=== PATIENT | female | born 1990 | race Caucasian/White ===

== ENCOUNTER 2018-04-02 21:51 | Inpatient (IN) | payer OTHER ==
[2018-04-03] MEDS ORDERED: ePHEDrine 50 MG/ML SDV IVPUSH PRN (04:22)
[2018-04-03] MEDS ORDERED: diphenhydrAMINE 50 MG/ML SDV IVPUSH PRN (04:22)
[2018-04-03] MEDS ORDERED: fentaNYL 100 MCG/2 ML SDV EPIDUR PRN (04:22)
[2018-04-03] MEDS ORDERED: Bupivacaine/fentaNYL/NS 100 ML Bag EPIDUR SCH (04:30)
[2018-04-03] MEDS ORDERED: Sodium Chloride 0.9% 10 ML Syringe FLUSH PRN (04:31)
[2018-04-03] MEDS ORDERED: Oxytocin/Lactated Ringers 10 UNIT/1,000 ML BAG IV SCH ×2 (04:45)
[2018-04-03] MEDS: Lactated Ringers 1,000 ML IV SCH ×3 (05:16→09:51)
--- NOTE | 2018-04-03 05:32 | PCM.LDHP ---
L&D History of Present Illness - General Date of Service: 04/02/18 Admit Problem/Dx: Patient Status Order with Admit Dx/Problem 04/03/18 04:31 Patient Status [ADT] Routine Admission Diagnosis/Problem Admission Diagnosis/Problem Source of Information: Patient History Limitations: Reports: No Limitations - History of Present Illness Introduction:: Patient is a 27 y/o G7 P 4205 woman at 38 1/7 wks who initially presented for concerns for contractions / labor. Contractions have been every 3-8 minutes. No bleeding or LOF with these contractions. Notes good FM. 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: : 7 Para: 6 (5 living children) LMP (Approximate): - Past Surgical History Female Surgical History: Reports: Lithotripsy/ESWL Social & Family History - Tobacco Use Smoking Status *Q: Former Smoker - Alcohol Use Alcohol Use History: No - Recreational Drug Use Recreational Drug Use: Yes Recreational Drug Type: Reports: Cocaine, Methamphetamine, Oxycodone H&P Review of Systems - Review of Systems: Review Of Systems: See Below General: Reports: No Symptoms Pulmonary: Reports: No Symptoms Cardiovascular: Reports: No Symptoms Gastrointestinal: Reports: No Symptoms Genitourinary: Reports: No Symptoms Musculoskeletal: Reports: No Symptoms Neurological: Reports: No Symptoms L&D Exam - Exam Exam: See Below - Vital Signs Weight: 68.492 kg - OB Specific Contraction Intensity: Mild Movement: Active Heart Tones: Present Heart Tones per Min: 120 Heart Rate (FHR) Variability: Moderate (6-25 bmp) Presentation: Vertex - Naik Score Naik Score Cervix Position: Posterior Naik Score Consistency: Medium Naik Score Effacement: 31-50% Naik Score Dilation: 3-4 cm Naik Score Infant's Station: -3 Naik Score Total: 4 - Exam General: Alert, Oriented, Cooperative Lungs: Clear to Auscultation, Normal Respiratory Effort Cardiovascular: Regular Rate, Regular Rhythm GI/Abdominal Exam: Soft, Non-Tender Genitourinary: Normal external exam Extremities: Normal Inspection Skin: Warm, Dry, Intact - Patient Data Lab Results Last 24 hrs: Laboratory Results - last 24 hr 04/03/18 04/03/18 Range/Units 03:30 03:30 WBC 8.60 (3.98-10.04) K/mm3 RBC 3.26 L (3.98-5.22) M/mm3 Hgb 10.2 L (11.2-15.7) gm/L Hct 30.3 L (34.1-44.9) % MCV 92.9 (79.4-94.8) fl MCH 31.3 (25.6-32.2) pg MCHC 33.7 (32.2-35.5) g/dl RDW Std Deviation 46.8 H (36.4-46.3) fL Plt Count 268 (182-369) K/mm3 MPV 10.1 (9.4-12.3) fl Neut % (Auto) 58.4 (34.0-71.1) % Lymph % (Auto) 31.2 (19.3-51.7) % [place] % (Auto) 7.1 (4.7-12.5) % Eos % (Auto) 1.4 (0.7-5.8) Baso % (Auto) 0.2 (0.1-1.2) % Neut # (Auto) 5.02 (1.56-6.13) K/mm3 Lymph # (Auto) 2.68 (1.18-3.74) K/mm3 [place] # (Auto) 0.61 H (0.24-0.36) K/mm3 Eos # (Auto) 0.12 (0.04-0.36) K/mm3 Baso # (Auto) 0.02 (0.01-0.08) K/mm3 Manual Slide Review Normal smear Creatinine 0.8 (0.55-1.02) mg/dL Est Cr Clr Drug Dosing 92.83 mL/min Estimated GFR (MDRD) > 60 (>60) mL/min AST 18 (15-37) U/L ALT 17 (14-59) U/L Result Diagrams: 04/03/18 03:30 04/03/18 03:30 - Problem List (1) 38 weeks gestation of SNOMED Code(s): 26438311 ICD Code: Z3A.38 - 38 WEEKS GESTATION OF Status: Acute Current Visit: Yes (2) Gestational hypertension SNOMED Code(s): 72724255 ICD Code: O13.9 - GESTATIONAL HTN W/O SIGNIFICANT PROTEINURIA, UNSP TRIMESTER Status: Acute Current Visit: Yes Qualifiers: Trimester: third trimester Qualified Code(s): O13.3 - Gestational [ -induced] hypertension without significant proteinuria, third trimester Problem List Initiated/Reviewed/Updated: Yes Orders Last 24hrs: Active Orders 24 hr Category Date Time Status Patient Status [ADT] Routine ADT 04/03/18 04:31 Active Activity as Tolerated [RC] PFP Care 04/03/18 04:31 Active Communication Order [RC] ASDIRECTED Care 04/03/18 04:21 Active Communication Order [RC] ASDIRECTED Care 04/03/18 04:31 Active Cooling Warming Measures [RC] ASDIRECTED Care 04/03/18 04:21 Active Heart Tones [RC] ASDIRECTED Care 04/03/18 04:32 Active Non Stress Test [RC] PER UNIT ROUTINE Care 04/03/18 04:31 Active Notify Provider [RC] ASDIRECTED Care 04/03/18 04:21 Active Notify Provider [RC] PFP Care 04/03/18 04:31 Active Notify Provider [RC] PRN Care 04/03/18 04:31 Active Oxygen Therapy [RC] ASDIRECTED Care 04/03/18 04:21 Active Peripheral IV Care [RC] . DIRECTED Care 04/03/18 04:32 Active Pulse Oximetry [RC] ASDIRECTED Care 04/03/18 04:21 Active Verify Patient Consent Obtain [RC] ASDIRECTED Care 04/03/18 04:21 Active Vital Signs [RC] PER UNIT ROUTINE Care 04/03/18 04:31 Active RAPID PLASMA REAGIN,RPR [CHEM] Routine Lab 04/03/18 03:30 Received Bupivacaine/fentaNYL/NS [fentaNYL/Bupivacaine/NS 2 MCG- Med 04/03/18 04:30 Active 0.125% 100 ML] 100 ml EPIDUR ASDIRECTED Lactated Ringers [Ringers, Lactated] 1,000 ml Med 04/03/18 04:45 Active IV ASDIRECTED Oxytocin/Lactated Ringers [Pitocin in LR 10 Units/1,000 Med 04/03/18 04:45 Active ML] 10 unit in 1,000 ml IV ASDIRECTED Oxytocin/Lactated Ringers [Pitocin in LR 10 Units/1,000 Med 04/03/18 04:45 Active ML] 10 unit in 1,000 ml IV TITRATE Sodium Chloride 0.9% [Saline Flush] Med 04/03/18 04:31 Active 10 ml FLUSH ASDIRECTED PRN diphenhydrAMINE [Benadryl] Med 04/03/18 04:22 Active 25 mg IVPUSH Q6H PRN ePHEDrine [ePHEDrine Sulfate] Med 04/03/18 04:22 Active 5 mg IVPUSH ASDIRECTED PRN fentaNYL [Sublimaze] Med 04/03/18 04:22 Active 100 mcg EPIDUR Q3H PRN Electronic Heart Tones Ext w TOCO [WOMSER] Oth 04/03/18 04:31 Ordered Routine Electronic Heart Tones Internal [WOMSER] Per Unit Ot 04/03/18 04:31 Ordered Routine Peripheral IV Insertion Adult [OM.PC] Routine Ot 04/03/18 04:31 Ordered Pulse Oximetry Continuous Monitoring [OM.PC] Routine Ot 04/03/18 04:21 Active Resuscitation Status Routine Resus Stat 04/03/18 04:31 Ordered Medication Orders Diphenhydramine HCl (Benadryl) 25 mg IVPUSH Q6H PRN PRN Reason: Itching Ephedrine Sulfate (Ephedrine Sulfate) 5 mg IVPUSH ASDIRECTED PRN PRN Reason: HYPOTENTSION Fentanyl (Sublimaze) 100 mcg EPIDUR Q3H PRN PRN Reason: Pain Fentanyl/Bupivacaine HCl (Fentanyl/Bupivacaine/Ns 2 Mcg-0.125% 100 Ml) 100 ml EPIDUR ASDIRECTED BENJI Lactated Ringer's (Ringers, Lactated) 1,000 mls @ 100 mls/hr IV ASDIRECTED BENJI Last Admin: 04/03/18 05:16 Dose: 100 mls/hr Oxytocin/Lactated Ringer's (Pitocin In Lr 10 Units/1,000 Ml) 10 unit in 1,000 mls @ 500 mls/hr IV ASDIRECTED BENJI Oxytocin/Lactated Ringer's (Pitocin In Lr 10 Units/1,000 Ml) 10 unit in 1,000 mls @ 12 mls/hr IV TITRATE BENJI; Protocol Last Admin: 04/03/18 05:17 Dose: 2 munits/min, 12 mls/hr Sodium Chloride (Saline Flush) 10 ml FLUSH ASDIRECTED PRN PRN Reason: Keep Vein Open Assessment/Plan Comment:: 27 y/o woman presented at 38 1/7 wks who presented for concerns of labor /contractions. No SVE chnge over the evening, but with findings of mild range BP's. Reviewed need for IOL for gestational HTN. She agreed. * CBC, AST, ALT, Cr, T&S, RPR * GBS negative, no need for antibiotics * Pitocin and AROM for IOL * Pain management per patient preference * Anticipate
--- NOTE | 2018-04-03 09:02 | PCM.PREANE ---
Preanesthetic Assessment - Anesthesia/Transfusion/Family Hx Anesthesia History: Prior Anesthesia Without Reaction Family History of Anesthesia Reaction: No Transfusion History: Prior Transfusion Without Reaction - Review of Systems General: No Symptoms Pulmonary: No Symptoms Cardiovascular: No Symptoms Gastrointestinal: Abdominal Pain (labor contractions) Neurological: No Symptoms Other: Reports: None - Physical Assessment Pulse: 85 O2 Sat by Pulse Oximetry: 100 Respiratory Rate: 16 Blood Pressure: 136/80 Temperature: 36.3 C Height: 1.63 m Weight: 68.492 kg ASA Class: 2 Mental Status: Alert & Oriented x3 Airway Class: Mallampati = 1 Dentition: Reports: Normal Dentition Thyro-Mental Finger Breadths: 3 Mouth Opening Finger Breadths: 3 ROM/Head Extension: Full Lungs: Clear to Auscultation, Normal Respiratory Effort Cardiovascular: Regular Rate, Regular Rhythm - Lab Values: Laboratory Last Values WBC 8.60 K/mm3 (3.98-10.04) 04/03/18 03:30 RBC 3.26 M/mm3 (3.98-5.22) L 04/03/18 03:30 Hgb 10.2 gm/L (11.2-15.7) L 04/03/18 03:30 Hct 30.3 % (34.1-44.9) L 04/03/18 03:30 MCV 92.9 fl (79.4-94.8) 04/03/18 03:30 MCH 31.3 pg (25.6-32.2) 04/03/18 03:30 MCHC 33.7 g/dl (32.2-35.5) 04/03/18 03:30 RDW Std Deviation 46.8 fL (36.4-46.3) H 04/03/18 03:30 Plt Count 268 K/mm3 (182-369) 04/03/18 03:30 MPV 10.1 fl (9.4-12.3) 04/03/18 03:30 Neut % (Auto) 58.4 % (34.0-71.1) 04/03/18 03:30 Lymph % (Auto) 31.2 % (19.3-51.7) 04/03/18 03:30 [place] % (Auto) 7.1 % (4.7-12.5) 04/03/18 03:30 Eos % (Auto) 1.4 (0.7-5.8) 04/03/18 03:30 Baso % (Auto) 0.2 % (0.1-1.2) 04/03/18 03:30 Neut # (Auto) 5.02 K/mm3 (1.56-6.13) 04/03/18 03:30 Lymph # (Auto) 2.68 K/mm3 (1.18-3.74) 04/03/18 03:30 [place] # (Auto) 0.61 K/mm3 (0.24-0.36) H 04/03/18 03:30 Eos # (Auto) 0.12 K/mm3 (0.04-0.36) 04/03/18 03:30 Baso # (Auto) 0.02 K/mm3 (0.01-0.08) 04/03/18 03:30 Manual Slide Review Normal smear 04/03/18 03:30 Creatinine 0.8 mg/dL (0.55-1.02) 04/03/18 03:30 Est Cr Clr Drug Dosing 92.83 mL/min 04/03/18 03:30 Estimated GFR (MDRD) > 60 mL/min (>60) 04/03/18 03:30 AST 18 U/L (15-37) 04/03/18 03:30 ALT 17 U/L (14-59) 04/03/18 03:30 RPR Non-reactive (NONREACTIVE) 04/03/18 03:30 - Allergies Allergies/Adverse Reactions: Allergies Allergy/AdvReac Type Severity Reaction Status Date / Time amoxicillin Allergy Hives Verified 04/03/18 02:19 - Anesthesia Plan Pre-Op Medication Ordered: None - Acknowledgements Anesthesia Type Planned: Epidural Pt an Appropriate Candidate for the Planned Anesthesia: Yes Alternatives and Risks of Anesthesia Discussed w Pt/Guardian: Yes Pt/Guardian Understands and Agrees with Anesthesia Plan: Yes PreAnesthesia Questionnaire Cardiovascular History: Reports: Other (See Below) (Hx of preeclampsia in prior pregnacy) Respiratory History: Reports: None Gastrointestinal History: Reports: None Genitourinary History: Reports: Renal Calculus, UTI, Recurrent Other Genitourinary History: Hx of severe kidney infections, renal calculus, and numerous kidney-related surgeries throughout her life (see surgical hx). 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 Endocrine/Metabolic History: Reports: None Hematologic History: Reports: Anemia Immunologic History: Reports: None Oncologic (Cancer) History: Reports: None Dermatologic History: Reports: None - Past Surgical History Female Surgical History: Reports: Lithotripsy/ESWL - SUBSTANCE USE Smoking Status *Q: Former Smoker Tobacco Use Within Last Twelve Months: Cigarettes Second Hand Smoke Exposure: No Recreational Drug Use History: Yes Recreational Drug Type: Reports: Cocaine, Methamphetamine, Oxycodone - CURRENT (IN HOUSE) MEDS Current Meds: Current Medications Diphenhydramine HCl (Benadryl) 25 mg IVPUSH Q6H PRN PRN Reason: Itching Ephedrine Sulfate (Ephedrine Sulfate) 5 mg IVPUSH ASDIRECTED PRN PRN Reason: HYPOTENTSION Fentanyl (Sublimaze) 100 mcg EPIDUR Q3H PRN PRN Reason: Pain Last Admin: 04/03/18 09:00 Dose: 100 mcg Fentanyl/Bupivacaine HCl (Fentanyl/Bupivacaine/Ns 2 Mcg-0.125% 100 Ml) 100 ml EPIDUR ASDIRECTED BENJI Last Admin: 04/03/18 09:00 Dose: 100 ml Lactated Ringer's (Ringers, Lactated) 1,000 mls @ 100 mls/hr IV ASDIRECTED BENJI Last Admin: 04/03/18 07:52 Dose: 100 mls/hr Oxytocin/Lactated Ringer's (Pitocin In Lr 10 Units/1,000 Ml) 10 unit in 1,000 mls @ 500 mls/hr IV ASDIRECTED BENJI Oxytocin/Lactated Ringer's (Pitocin In Lr 10 Units/1,000 Ml) 10 unit in 1,000 mls @ 12 mls/hr IV TITRATE BENJI; Protocol Last Admin: 04/03/18 05:17 Dose: 2 munits/min, 12 mls/hr Sodium Chloride (Saline Flush) 10 ml FLUSH ASDIRECTED PRN PRN Reason: Keep Vein Open
--- NOTE | 2018-04-03 10:34 | PCM.PNLD ---
Labor Progress Note - VS & Meds Vital Signs: Last Vital Signs Temp 36.3 C 04/03/18 09:02 Pulse 85 04/03/18 09:02 Resp 16 04/03/18 09:02 BP 136/80 04/03/18 09:02 Pulse Ox 100 04/03/18 09:02 Active Medications: Current Medications Diphenhydramine HCl (Benadryl) 25 mg IVPUSH Q6H PRN PRN Reason: Itching Last Admin: 04/03/18 09:50 Dose: 25 mg Ephedrine Sulfate (Ephedrine Sulfate) 5 mg IVPUSH ASDIRECTED PRN PRN Reason: HYPOTENTSION Fentanyl (Sublimaze) 100 mcg EPIDUR Q3H PRN PRN Reason: Pain Last Admin: 04/03/18 09:00 Dose: 100 mcg Fentanyl/Bupivacaine HCl (Fentanyl/Bupivacaine/Ns 2 Mcg-0.125% 100 Ml) 100 ml EPIDUR ASDIRECTED BENJI Last Admin: 04/03/18 09:00 Dose: 100 ml Lactated Ringer's (Ringers, Lactated) 1,000 mls @ 100 mls/hr IV ASDIRECTED BENJI Last Admin: 04/03/18 09:51 Dose: 100 mls/hr Oxytocin/Lactated Ringer's (Pitocin In Lr 10 Units/1,000 Ml) 10 unit in 1,000 mls @ 500 mls/hr IV ASDIRECTED BENJI Oxytocin/Lactated Ringer's (Pitocin In Lr 10 Units/1,000 Ml) 10 unit in 1,000 mls @ 12 mls/hr IV TITRATE BENJI; Protocol Last Titration: 04/03/18 10:27 Dose: 6 munits/min, 36 mls/hr Sodium Chloride (Saline Flush) 10 ml FLUSH ASDIRECTED PRN PRN Reason: Keep Vein Open - Uterine Contractions Uterine Monitoring Mode: External [place] Contraction Intensity: Mild - Monitoring Monitor Mode: External Ultrasound Heart Rate (FHR) Baseline: 120 Heart Rate (FHR) Variability: Moderate (6-25 bmp) Accelerations: Present, 15x15 Decelerations: Variable Strip Review: Category II - Labor Progress (Free Text) Labor Progress: Patient doing well overall. AROM done at about 0600 this AM. Has been getting more uncomfortable. Received her epidural. Pitocin currently at 2. Continue present management
--- NOTE | 2018-04-03 12:23 | PCM.DEL ---
L & D Note - General Info Date of Service: 04/03/18 - Delivery Note Labor: Induced by ARM, Induced by Oxytocin Delivery Outcome: Livebirth Infant Delivery Method: Spontaneous Vaginal Delivery-Single Delivery Mode: Spontaneous Presentation: Right Occiput Anterior (GLORIA) Nuchal Cord: None Anesthesia Type: Epidural Amniotic Fluid Description: Clear Episiotomy Type: None Laceration: None Placenta: Intact, Spontaneous Cord: 3 Vessels Estimated Blood Loss: 200 Resuscitation Needed: Yes [place]: Bulb Syringe, Stimulated, Warmed, [place] Used, Warmer Used Score 1 min: 9 Score 5 min: 9 Delivery Comments (Free Text/Narrative):: Patient found to be complete and began pushing. With maternal pushing effort head delivered from an GLORIA presentation. No nuchal cord present. With gentle downward traction the shoulders and body delivered. Infant placed on maternal abdomen. Cord clamped and cut. Cord blood blood obtained. Placenta allowed time to separate and expelled intact. Inspection of the perineum showed no lacerations. - General Info Date of Service: 04/03/18 - Patient Data Vitals - Most Recent: Last Vital Signs Temp 36.3 C 04/03/18 09:02 Pulse 85 04/03/18 09:02 Resp 16 04/03/18 09:02 BP 136/80 04/03/18 09:02 Pulse Ox 100 04/03/18 09:02 Weight - Most Recent: 68.492 kg I&O - Last 24 Hours: Intake & Output 04/02/18 04/03/18 04/03/18 22:59 06:59 14:59 Intake Total 120 Balance 120 Lab Results Last 24 Hours: Laboratory Results - last 24 hr 04/03/18 04/03/18 04/03/18 Range/Units 03:30 03:30 03:30 WBC 8.60 (3.98-10.04) K/mm3 RBC 3.26 L (3.98-5.22) M/mm3 Hgb 10.2 L (11.2-15.7) gm/L Hct 30.3 L (34.1-44.9) % MCV 92.9 (79.4-94.8) fl MCH 31.3 (25.6-32.2) pg MCHC 33.7 (32.2-35.5) g/dl RDW Std Deviation 46.8 H (36.4-46.3) fL Plt Count 268 (182-369) K/mm3 MPV 10.1 (9.4-12.3) fl Neut % (Auto) 58.4 (34.0-71.1) % Lymph % (Auto) 31.2 (19.3-51.7) % [place] % (Auto) 7.1 (4.7-12.5) % Eos % (Auto) 1.4 (0.7-5.8) Baso % (Auto) 0.2 (0.1-1.2) % Neut # (Auto) 5.02 (1.56-6.13) K/mm3 Lymph # (Auto) 2.68 (1.18-3.74) K/mm3 [place] # (Auto) 0.61 H (0.24-0.36) K/mm3 Eos # (Auto) 0.12 (0.04-0.36) K/mm3 Baso # (Auto) 0.02 (0.01-0.08) K/mm3 Manual Slide Review Normal smear Creatinine 0.8 (0.55-1.02) mg/dL Est Cr Clr Drug Dosing 92.83 mL/min Estimated GFR (MDRD) > 60 (>60) mL/min AST 18 (15-37) U/L ALT 17 (14-59) U/L RPR Non-reactive (NONREACTIVE) MRSA (PCR) 04/03/18 Range/Units 07:45 WBC (3.98-10.04) K/mm3 RBC (3.98-5.22) M/mm3 Hgb (11.2-15.7) gm/L Hct (34.1-44.9) % MCV (79.4-94.8) fl MCH (25.6-32.2) pg MCHC (32.2-35.5) g/dl RDW Std Deviation (36.4-46.3) fL Plt Count (182-369) K/mm3 MPV (9.4-12.3) fl Neut % (Auto) (34.0-71.1) % Lymph % (Auto) (19.3-51.7) % [place] % (Auto) (4.7-12.5) % Eos % (Auto) (0.7-5.8) Baso % (Auto) (0.1-1.2) % Neut # (Auto) (1.56-6.13) K/mm3 Lymph # (Auto) (1.18-3.74) K/mm3 [place] # (Auto) (0.24-0.36) K/mm3 Eos # (Auto) (0.04-0.36) K/mm3 Baso # (Auto) (0.01-0.08) K/mm3 Manual Slide Review Creatinine (0.55-1.02) mg/dL Est Cr Clr Drug Dosing mL/min Estimated GFR (MDRD) (>60) mL/min AST (15-37) U/L ALT (14-59) U/L RPR (NONREACTIVE) MRSA (PCR) Negative Med Orders - Current: Current Medications Diphenhydramine HCl (Benadryl) 25 mg IVPUSH Q6H PRN PRN Reason: Itching Last Admin: 04/03/18 09:50 Dose: 25 mg Ephedrine Sulfate (Ephedrine Sulfate) 5 mg IVPUSH ASDIRECTED PRN PRN Reason: HYPOTENTSION Fentanyl (Sublimaze) 100 mcg EPIDUR Q3H PRN PRN Reason: Pain Last Admin: 04/03/18 09:00 Dose: 100 mcg Fentanyl/Bupivacaine HCl (Fentanyl/Bupivacaine/Ns 2 Mcg-0.125% 100 Ml) 100 ml EPIDUR ASDIRECTED BENJI Last Admin: 04/03/18 09:00 Dose: 100 ml Lactated Ringer's (Ringers, Lactated) 1,000 mls @ 100 mls/hr IV ASDIRECTED BENJI Last Admin: 04/03/18 09:51 Dose: 100 mls/hr Oxytocin/Lactated Ringer's (Pitocin In Lr 10 Units/1,000 Ml) 10 unit in 1,000 mls @ 500 mls/hr IV ASDIRECTED BENJI Oxytocin/Lactated Ringer's (Pitocin In Lr 10 Units/1,000 Ml) 10 unit in 1,000 mls @ 12 mls/hr IV TITRATE BENJI; Protocol Last Titration: 04/03/18 11:05 Dose: 8 munits/min, 48 mls/hr Sodium Chloride (Saline Flush) 10 ml FLUSH ASDIRECTED PRN PRN Reason: Keep Vein Open - Problem List & Annotations (1) 38 weeks gestation of SNOMED Code(s): 91974569 Code(s): Z3A.38 - 38 WEEKS GESTATION OF Status: Acute Current Visit: Yes (2) Gestational hypertension SNOMED Code(s): 15823831 Code(s): O13.9 - GESTATIONAL HTN W/O SIGNIFICANT PROTEINURIA, UNSP TRIMESTER Status: Acute Current Visit: Yes Qualifiers: Trimester: third trimester Qualified Code(s): O13.3 - Gestational [ -induced] hypertension without significant proteinuria, third trimester (3) Vaginal delivery SNOMED Code(s): 464036532 Code(s): O80 - ENCOUNTER FOR FULL-TERM UNCOMPLICATED DELIVERY Status: Acute Current Visit: Yes - Problem List Review Problem List Initiated/Reviewed/Updated: Yes - My Orders Last 24 Hours: My Active Orders 04/03/18 04:31 Patient Status [ADT] Routine Activity as Tolerated [RC] PFP Vital Signs [RC] PER UNIT ROUTINE Sodium Chloride 0.9% [Saline Flush] 10 ml FLUSH ASDIRECTED PRN Electronic Heart Tones Ext w TOCO [WOMSER] Routine Electronic Heart Tones Internal [WOMSER] Per Unit Routine Peripheral IV Insertion Adult [OM.PC] Routine Resuscitation Status Routine 04/03/18 04:32 Peripheral IV Care [RC] . DIRECTED 04/03/18 04:45 Lactated Ringers [Ringers, Lactated] 1,000 ml IV ASDIRECTED Oxytocin/Lactated Ringers [Pitocin in LR 10 Units/1,000 ML] 10 unit in 1,000 ml IV ASDIRECTED Oxytocin/Lactated Ringers [Pitocin in LR 10 Units/1,000 ML] 10 unit in 1,000 ml IV TITRATE 04/03/18 12:16 Patient Status Manage Transfer [TRANSFER] Routine 04/03/18 Breakfast Regular Diet [DIET] - Assessment Assessment:: 27 y/o G7 now [id number] woman PPD#0 from at 38 2/7 wks after IOL for gestational HTN - Plan Plan:: * Routine cares * Bottle feeding * Will watch BP's closely following delivery * Potential [facility] back to correctional facility tomorrow
[2018-04-03] MEDS ORDERED: Acetaminophen 325 MG Tab PO PRN (13:50)
[2018-04-03] MEDS ORDERED: Lanolin 100% Cream 7 GM Tube TOP PRN (13:50)
[2018-04-03] MEDS ORDERED: Ibuprofen 600 MG Tab PO PRN (13:50)
[2018-04-03] MEDS ORDERED: Docusate Sodium 100 MG Cap PO PRN (13:50)
[2018-04-03] MEDS ORDERED: Benzocaine/Menthol 20%-0.5% Spray 56 GM Canister TOP PRN (13:50)
[2018-04-03] MEDS ORDERED: Witch Hazel Medicated Pads 100/Jar TOP PRN (13:50)
[2018-04-03] MEDS ORDERED: Bupivacaine 0.25% 10 ML SDV ONE (22:00)
--- NOTE | 2018-04-04 08:50 | PCM.PNPP ---
- General Info Date of Service: 04/04/18 Functional Status: Reports: Pain Controlled, Tolerating Diet, Ambulating, Urinating - Review of Systems General: Reports: No Symptoms Cardiovascular: Reports: No Symptoms Gastrointestinal: Reports: No Symptoms Genitourinary: Reports: No Symptoms Musculoskeletal: Reports: No Symptoms Neurological: Reports: No Symptoms - Patient Data Vital Signs - Most Recent: Last Vital Signs Temp 37.1 C 04/04/18 07:54 Pulse 64 04/04/18 07:54 Resp 15 04/04/18 07:54 BP 126/85 04/04/18 07:54 Pulse Ox 99 04/04/18 07:54 Weight - Most Recent: 68.492 kg I&O - Last 24 Hours: Intake & Output 04/03/18 04/04/18 04/04/18 22:59 06:59 14:59 Intake Total 300 Balance 300 Lab Results - Last 24 Hours: Laboratory Results - last 24 hr 04/03/18 Range/Units 07:45 MRSA (PCR) Negative Med Orders - Current: Current Medications Acetaminophen (Tylenol) 650 mg PO Q4H PRN PRN Reason: mild pain or fever Last Admin: 04/03/18 14:14 Dose: 650 mg Benzocaine/Menthol (Dermoplast Pain Relief [place]) 0 gm TOP ASDIRECTED PRN PRN Reason: Perineal Comfort Measure Last Admin: 04/03/18 14:11 Dose: 1 spray Docusate Sodium (Colace) 100 mg PO BID PRN PRN Reason: Constipation Emollient Ointment (Lansinoh Hpa) 0 gm TOP ASDIRECTED PRN PRN Reason: Sore Nipples Witch Brandi (Tucks) 1 pad TOP ASDIRECTED PRN PRN Reason: Hemorrhoid pain Last Admin: 04/03/18 14:12 Dose: 1 pad Discontinued Medications Diphenhydramine HCl (Benadryl) 25 mg IVPUSH Q6H PRN PRN Reason: Itching Last Admin: 04/03/18 09:50 Dose: 25 mg Ephedrine Sulfate (Ephedrine Sulfate) 5 mg IVPUSH ASDIRECTED PRN PRN Reason: HYPOTENTSION Fentanyl (Sublimaze) 100 mcg EPIDUR Q3H PRN PRN Reason: Pain Last Admin: 04/03/18 09:00 Dose: 100 mcg Fentanyl/Bupivacaine HCl (Fentanyl/Bupivacaine/Ns 2 Mcg-0.125% 100 Ml) 100 ml EPIDUR ASDIRECTED BENJI Last Admin: 04/03/18 09:00 Dose: 100 ml Lactated Ringer's (Ringers, Lactated) 1,000 mls @ 100 mls/hr IV ASDIRECTED BENJI Last Admin: 04/03/18 09:51 Dose: 100 mls/hr Oxytocin/Lactated Ringer's (Pitocin In Lr 10 Units/1,000 Ml) 10 unit in 1,000 mls @ 500 mls/hr IV ASDIRECTED BENJI Oxytocin/Lactated Ringer's (Pitocin In Lr 10 Units/1,000 Ml) 10 unit in 1,000 mls @ 12 mls/hr IV TITRATE BENJI; Protocol Last Titration: 04/03/18 11:05 Dose: 8 munits/min, 48 mls/hr Ibuprofen (Motrin) 600 mg PO Q6H PRN PRN Reason: Mild pain or fever Sodium Chloride (Saline Flush) 10 ml FLUSH ASDIRECTED PRN PRN Reason: Keep Vein Open - Interaction Infant Disposition, : Mobile in Room with Family Infant Interaction: Holding Feeding: Attempted ; Nursed Fair/Poor Support Person: Other (see below) - Recovery Exam Fundal Tone: Firm Fundal Level: 2 Fingerbreadths Below Umbilicus Fundal Placement: Midline Lochia Amount: Scant, Small Lochia Color: Rubra/Red Perineum Description: Intact, Minimal Bruising/Swelling Bladder Status: Voiding Urinary Elimination: Voided - Exam General: Alert, Oriented, Cooperative GI/Abdominal Exam: Soft, Non-Tender Extremities: Normal Inspection Skin: Warm, Dry, Intact - Problem List & Annotations (1) 38 weeks gestation of SNOMED Code(s): 90335840 Code(s): Z3A.38 - 38 WEEKS GESTATION OF Status: Acute Current Visit: Yes (2) Gestational hypertension SNOMED Code(s): 58936683 Code(s): O13.9 - GESTATIONAL HTN W/O SIGNIFICANT PROTEINURIA, UNSP TRIMESTER Status: Acute Current Visit: Yes Qualifiers: Trimester: third trimester Qualified Code(s): O13.3 - Gestational [ -induced] hypertension without significant proteinuria, third trimester (3) Vaginal delivery SNOMED Code(s): 297955669 Code(s): O80 - ENCOUNTER FOR FULL-TERM UNCOMPLICATED DELIVERY Status: Acute Current Visit: Yes - Problem List Review Problem List Initiated/Reviewed/Updated: Yes - My Orders Last 24 Hours: My Active Orders 04/03/18 13:50 Activity as Tolerated [RC] PER UNIT ROUTINE Vital Signs [RC] 03,09,15,21 Acetaminophen [Tylenol] 650 mg PO Q4H PRN Benzocaine/Menthol [Dermoplast Pain Relief [place]] See Dose Instructions TOP ASDIRECTED PRN Docusate Sodium [Colace] 100 mg PO BID PRN Lanolin [Lansinoh HPA] See Dose Instructions TOP ASDIRECTED PRN Witch Brandi [Tucks] 1 pad TOP ASDIRECTED PRN Assess Lochia [WOMSER] Per Unit Routine Assess Uterine Involution [WOMSER] Per Unit Routine Breast Pump [WOMSER] Per Unit Routine Heat Therapy [OM.PC] PRN Ice Therapy [OM.PC] Per Unit Routine Perineal Care [OM.PC] Per Unit Routine Peripheral IV Discontinue [OM.PC] Routine Sitz Bath [OM.PC] Per Unit Routine 04/03/18 Lunch Regular Diet [DIET] 04/04/18 13:50 Heat Therapy [OM.PC] PRN - Assessment Assessment:: 27 y/o G7 now [id number] woman PPD#1 from at 38 2/7 wks after IOL for gestational HTN - Plan Plan:: * Routine cares * Bottle feeding and breast feeding * BP's normal. Will have her do a BP re-check in clinic in a few weeks * Discharge to facility today
--- NOTE | 2018-04-04 08:52 | PCM.DCSUM1 ---
Discharge Summary - Discharge Data Discharge Date: 04/04/18 Discharge Disposition: DC/Tfer to [facility] Enf 21 Condition: Good - Discharge Diagnosis/Problem(s) (1) 38 weeks gestation of SNOMED Code(s): 50301005 ICD Code: Z3A.38 - 38 WEEKS GESTATION OF Status: Acute Current Visit: Yes (2) Gestational hypertension SNOMED Code(s): 67964670 ICD Code: O13.9 - GESTATIONAL HTN W/O SIGNIFICANT PROTEINURIA, UNSP TRIMESTER Status: Acute Current Visit: Yes Qualifiers: Trimester: third trimester Qualified Code(s): O13.3 - Gestational [ -induced] hypertension without significant proteinuria, third trimester (3) Vaginal delivery SNOMED Code(s): 538444450 ICD Code: O80 - ENCOUNTER FOR FULL-TERM UNCOMPLICATED DELIVERY Status: Acute Current Visit: Yes - Patient Summary/Data Complications: None Consults: None Recommended Follow-up Testing/Procedures: Follow up in 1-2 weeks for BP check. Follow up in 3-6 weeks for check Hospital Course: 27 y/o at 38 1/7 wks who presented for concerns of labor. Was found to have a stable cervical exam, but mild range BP's. For this reason IOL started. This was done with pitocin and AROM. She progressed well to complete dilation with this intervention and underwent an uncomplicated . See delivery note for full details. she did well with normal BP's and was discharged back to her correctional facility on PPD#1. - Patient Instructions Diet: Regular Diet as Tolerated Activity: As Tolerated Activity, Other: Pelvic Rest for 6 weeks Driving: May Drive Today Showering/Bathing: May Shower Showering/Bathing, Other: May Bathe Notify Provider of: Fever, Increased Pain, Swelling and Redness, Drainage, Nausea and/or Vomiting - Discharge Plan *PRESCRIPTION DRUG MONITORING PROGRAM REVIEWED*: Not Applicable *COPY OF PRESCRIPTION DRUG MONITORING REPORT IN PATIENT HERMINIA: Not Applicable Home Medications: Home Meds Docusate Sodium [Colace] 100 mg PO BID PRN cap 04/03/18 [Rx] Ibuprofen [Motrin] 600 mg PO Q6H PRN tablet 04/03/18 [Rx] Referrals: Karen Shaw MD [Physician] - (3-6 weeks for check 1-2 weeks for BP check ) - Discharge Summary/Plan Comment DC Time >30 min.: No - Patient Data Vitals - Most Recent: Last Vital Signs Temp 37.1 C 04/04/18 07:54 Pulse 64 04/04/18 07:54 Resp 15 04/04/18 07:54 BP 126/85 04/04/18 07:54 Pulse Ox 99 04/04/18 07:54 Weight - Most Recent: 68.492 kg I&O - Last 24 hours: Intake & Output 04/03/18 04/04/18 04/04/18 22:59 06:59 14:59 Intake Total 300 Balance 300 Lab Results - Last 24 hrs: Laboratory Results - last 24 hr 04/03/18 Range/Units 07:45 MRSA (PCR) Negative Med Orders - Current: Current Medications Acetaminophen (Tylenol) 650 mg PO Q4H PRN PRN Reason: mild pain or fever Last Admin: 04/03/18 14:14 Dose: 650 mg Benzocaine/Menthol (Dermoplast Pain Relief [place]) 0 gm TOP ASDIRECTED PRN PRN Reason: Perineal Comfort Measure Last Admin: 04/03/18 14:11 Dose: 1 spray Docusate Sodium (Colace) 100 mg PO BID PRN PRN Reason: Constipation Emollient Ointment (Lansinoh Hpa) 0 gm TOP ASDIRECTED PRN PRN Reason: Sore Nipples Witch Brandi (Tucks) 1 pad TOP ASDIRECTED PRN PRN Reason: Hemorrhoid pain Last Admin: 04/03/18 14:12 Dose: 1 pad Discontinued Medications Diphenhydramine HCl (Benadryl) 25 mg IVPUSH Q6H PRN PRN Reason: Itching Last Admin: 04/03/18 09:50 Dose: 25 mg Ephedrine Sulfate (Ephedrine Sulfate) 5 mg IVPUSH ASDIRECTED PRN PRN Reason: HYPOTENTSION Fentanyl (Sublimaze) 100 mcg EPIDUR Q3H PRN PRN Reason: Pain Last Admin: 04/03/18 09:00 Dose: 100 mcg Fentanyl/Bupivacaine HCl (Fentanyl/Bupivacaine/Ns 2 Mcg-0.125% 100 Ml) 100 ml EPIDUR ASDIRECTED BENJI Last Admin: 04/03/18 09:00 Dose: 100 ml Lactated Ringer's (Ringers, Lactated) 1,000 mls @ 100 mls/hr IV ASDIRECTED BENJI Last Admin: 04/03/18 09:51 Dose: 100 mls/hr Oxytocin/Lactated Ringer's (Pitocin In Lr 10 Units/1,000 Ml) 10 unit in 1,000 mls @ 500 mls/hr IV ASDIRECTED BENJI Oxytocin/Lactated Ringer's (Pitocin In Lr 10 Units/1,000 Ml) 10 unit in 1,000 mls @ 12 mls/hr IV TITRATE BENJI; Protocol Last Titration: 04/03/18 11:05 Dose: 8 munits/min, 48 mls/hr Ibuprofen (Motrin) 600 mg PO Q6H PRN PRN Reason: Mild pain or fever Sodium Chloride (Saline Flush) 10 ml FLUSH ASDIRECTED PRN PRN Reason: Keep Vein Open
--- NOTE | 2018-04-04 11:29 | PCM48HPAN ---
Post Anesthesia Note - EVALUATION WITHIN 48HRS OF ANESTHETIC Vital Signs in Normal Range: Yes Patient Participated in Evaluation: Yes Respiratory Function Stable: Yes Airway Patent: Yes Cardiovascular Function Stable: Yes Hydration Status Stable: Yes Pain Control Satisfactory: Yes Nausea and Vomiting Control Satisfactory: Yes Mental Status Recovered: Yes Pulse Rate: 64 Resp Rate: 15 Temperature: 37.1 C Blood Pressure: 126/85
== END 2018-04-04 12:30 | DRG 775 ==
LOC: JD.OBCHECK 21:51 → JD.OB 21:54 → JD.OBCHECK 04-03 04:31 → JD.OB 04-03 05:11 → OBSVTOIN 04-03 12:04 → JD.OB 04-03 12:05 → INTOOBSV 04-03 12:16 → OBSVTOIN 04-03 12:16
PROVIDERS: ADMIT Obstetrics & Gynecology; ATTEND Obstetrics & Gynecology
PROC: 10E0XZZ Delivery of Products of Conception, External Approach (ICD-10-PCS; principal; 2018-04-03)
PROC: 6A550ZT Pheresis of Cord Blood Stem Cells, Single (ICD-10-PCS; 2018-04-03)
PROC: 10907ZC Drainage of Amniotic Fluid, Therapeutic from Products of Conception, Via Natural or Artificial Opening (ICD-10-PCS; 2018-04-03)
PROC: 3E033VJ Introduction of Other Hormone into Peripheral Vein, Percutaneous Approach (ICD-10-PCS; 2018-04-03)
PROC: 00HU33Z Insertion of Infusion Device into Spinal Canal, Percutaneous Approach (ICD-10-PCS; 2018-04-03)
PROC: 3E0R3BZ Introduction of Anesthetic Agent into Spinal Canal, Percutaneous Approach (ICD-10-PCS; 2018-04-03)
DX: O13.4 Gestational [pregnancy-induced] hypertension without significant proteinuria, complicating childbirth (principal); Z37.0 Single live birth; Z3A.38 38 weeks gestation of pregnancy; Z88.1 Allergy status to other antibiotic agents; Z87.442 Personal history of urinary calculi; Z87.440 Personal history of urinary (tract) infections; Z87.891 Personal history of nicotine dependence
CPT/HCPCS: 36415; 51702; 59025; 59409; 82565; 84450; 84460; 85025; 86592; 87641; A9270-GY; J1200; J2590; J3010; J7120